=== PATIENT | female | born 1985 | race Caucasian/White ===

== ENCOUNTER 2017-10-17 14:36 | Emergency (ER) | payer MEDICARE | END 2017-10-17 19:26 | disposition home or self-care (01) | LOC: D.ER 14:36 | DX: S70.01XA Contusion of right hip, initial encounter (principal); W19.XXXA Unspecified fall, initial encounter; Y93.89 Activity, other specified; Y92.019 Unspecified place in single-family (private) house as the place of occurrence of the external cause ==

== ENCOUNTER 2017-12-08 16:40 | Emergency (ER) | payer MEDICARE | END 2017-12-08 18:30 | disposition home or self-care (01) | LOC: D.ER 16:40 | DX: S83.91XA Sprain of unspecified site of right knee, initial encounter (principal); W01.0XXA Fall on same level from slipping, tripping and stumbling without subsequent striking against object, initial encounter; Y93.89 Activity, other specified; Y92.019 Unspecified place in single-family (private) house as the place of occurrence of the external cause; F17.200 Nicotine dependence, unspecified, uncomplicated ==

== ENCOUNTER 2018-01-15 15:00 | Emergency (ER) | payer MEDICARE ==
[2018-01-15 15:39] LABS: BASOPHILS 0.4 % (0-2); EOSINOPHILS 2.3 % (0-7); HEMATOCRIT 38.7 % (36.0-48.0); HEMOGLOBIN 12.9 g/dL (12-16); IMMATURE GRANULOCYTES 0.2 % (0-5); LYMPHOCYTES 22.5 % (15-50); MCH 31.7 pg (26.0-34.0); MCHC 33.3 g/dL (31.0-37.0); MCV 95.1 fL (80.0-100.0); MEAN PLATELET VOLUME 11.4 fL (7.4-10.4); MONOCYTES 5.4 % (2-11); NEUTROPHILS 69.2 % (40-80); PLATELET COUNT 246 10x3/uL (130-400); RBC 4.07 10x6/uL (4.00-5.40); RDW 13.4 % (11.5-14.5); WBC 8.2 10x3/uL (4.8-10.8)
[2018-01-15 15:59] LABS: ALBUMIN 3.9 g/dL (3.4-5.0); ALKALINE PHOSPHATASE 72 U/L (46-116); ALT (SGPT) 23 U/L (10-68); BILIRUBIN - TOTAL 0.17 mg/dL (0.2-1.3); CALC OSMOLALITY 274 mosm/kg (275-300); CALCIUM 9.4 mg/dL (8.5-10.1); CARBON DIOXIDE 23.2 mmol/L (21.0-32.0); CHLORIDE - SERUM 103 mmol/L (98-107); CREATININE - SERUM 0.7 mg/dL (0.6-1.3); GLUCOSE 89 mg/dL (74-106); POTASSIUM - SERUM 4.4 mmol/L (3.5-5.1); PROTEIN - SERUM 7.6 g/dL (6.4-8.2); SODIUM 137 mmol/L (136-145); UREA NITROGEN 19 mg/dL (7-18); eGFR NON AFRICAN AMERICAN > 90 mL/min (90-120)
[2018-01-15 16:02] LABS: HCG SERUM NEGATIVE (NEGATIVE)
[2018-01-15 16:06] LABS: HCG - QUANTITATIVE (MATERNAL) 0 mIU/mL
[2018-01-15 16:54] LABS: APPEARANCE HAZY (CLEAR); BILIRUBIN NEGATIVE (NEGATIVE); COLOR RED (YELLOW); EPITHELIAL CELLS 0-5 /hpf (0-5); GLUCOSE NEGATIVE (NEGATIVE); KETONE NEGATIVE (NEGATIVE); NITRITE NEGATIVE (NEGATIVE); PROTEIN TRACE mg/dL (NEGATIVE); RED CELLS - URINE >50 /hpf (0-5); UROBILINOGEN NORMAL (NORMAL); WHITE CELLS - URINE 0-5 /hpf (0-5)
[2018-01-15 16:55] LABS: BACTERIA MODERATE /hpf (NONE SEEN)
== END 2018-01-15 17:43 | disposition home or self-care (01) ==
LOC: D.ER 15:00
PROVIDERS: Emergency Medicine
DX: N93.8 Other specified abnormal uterine and vaginal bleeding (principal); F17.200 Nicotine dependence, unspecified, uncomplicated

== ENCOUNTER 2018-09-09 17:48 | Emergency (ER) | payer MEDICARE ==
[~2018-09-09] VITALS: Ht 165.1 cm; Wt 68.0 kg
[2018-09-09 18:14] VITALS: Ht 165.1 cm; Wt 68.0 kg
[2018-09-09] MEDS ORDERED: NORCO 7.5/325 T1 TA1 PO (21:03)
[2018-09-09] MEDS ORDERED: NAPROXEN SODIU550 M1 PO (21:03)
[2018-09-09 21:33] VITALS: BP 104/63
== END 2018-09-09 21:33 | disposition home or self-care (01) ==
LOC: D.ER 17:48
DX: S70.01XA Contusion of right hip, initial encounter (principal); W10.9XXA Fall (on) (from) unspecified stairs and steps, initial encounter; Y93.89 Activity, other specified; Y92.019 Unspecified place in single-family (private) house as the place of occurrence of the external cause; M16.11 Unilateral primary osteoarthritis, right hip; S73.101A Unspecified sprain of right hip, initial encounter

== ENCOUNTER 2018-09-11 18:44 | Emergency (ER) | payer MEDICARE ==
[~2018-09-11] VITALS: Ht 165.1 cm; Wt 68.0 kg
[~2018-09-11 18:44] MED LIST: NAPROXEN SODIU550 M1 PO; NORCO 7.5/325 T1 TA1 PO
[2018-09-11 18:54] VITALS: Ht 165.1 cm; Wt 68.0 kg
[2018-09-11] MEDS ORDERED: CLEOCIN HCL150 MG PO (19:49)
[2018-09-11 20:10] VITALS: BP 101/56
== END 2018-09-11 20:10 | disposition home or self-care (01) ==
LOC: D.ER 18:44
DX: S61.412A Laceration without foreign body of left hand, initial encounter (principal); W26.8XXA Contact with other sharp object(s), not elsewhere classified, initial encounter; Y93.89 Activity, other specified; Y92.019 Unspecified place in single-family (private) house as the place of occurrence of the external cause; F17.200 Nicotine dependence, unspecified, uncomplicated